=== PATIENT | male | born 1980 | race African-American/Black ===

== ENCOUNTER 2016-08-02 06:26 | Emergency (ER) | payer OTHER ==
[2016-08-02 09:47] VITALS: BP 137/106
== END 2016-08-02 09:47 | disposition home or self-care (01) ==
LOC: ED 06:26
DX: K40.90 Unilateral inguinal hernia, without obstruction or gangrene, not specified as recurrent (principal); N50.812 Left testicular pain; K59.00 Constipation, unspecified
CPT/HCPCS: J2270; Q0162

== ENCOUNTER 2019-03-29 00:55 | Emergency (ER) | payer MEDICAID ==
[~2019-03-29] VITALS: Ht 177.8 cm; Wt 108.0 kg
[2019-03-29 01:00] VITALS: Ht 177.8 cm; Wt 108.0 kg
[2019-03-29 03:36] VITALS: BP 117/78
== END 2019-03-29 03:36 | disposition home or self-care (01) ==
LOC: ED 00:55
DX: J18.9 Pneumonia, unspecified organism (principal); J40 Bronchitis, not specified as acute or chronic; F17.210 Nicotine dependence, cigarettes, uncomplicated; Z98.890 Other specified postprocedural states
CPT/HCPCS: 87804; Q0092